=== PATIENT | male | born 1990 | race American Indian/Alaskan Native ===

== ENCOUNTER 2016-12-07 09:15 | Emergency (ER) | payer MEDICAID ==
[2016-12-07] MEDS ORDERED: TORADOL IM ONE (10:34)
--- NOTE | 2016-12-07 10:40 | Emergency Department Report ---
HPI - General Chief Complaint: Extremity Injury, Lower Time Seen by Provider: 12/07/16 10:23 - HPI HPI: Room 24 The patient is a 26-year-old male presenting with a chief complaint right lower extremity pain. The patient states last night at approximately 20:00 while at work he developed pain and numbness in his right lower extremity. The patient states the pain increases with movement or weightbearing. The patient has a history of herniated disc at L4/L5 in addition to sciatica. Patient denies testicular pain, dysuria, hematuria, fever, nausea or vomiting. Patient denies bowel or bladder incontinence. Patient denies any preceding trauma. The patient gives his pain a score of 9/10. The patient states he has pain from his sciatica nearly every day Location: Right lower extremity Duration: Constant since 20:00 Quality: Pain Severity: 9/10 Modifying factors: Movement and weightbearing increases pain Context: [see above] Mode of transportation: The patient drove himself to the emergency department and there are currently no visitors present. Patient states he will attempt to contact his ED Past Medical Hx - Past Medical History Additional medical history: Hx Aplastic anemia/ sciatica. L4/5 - Surgical History Additional Surgical History: Port-a-cath placed to left chest-1996 - Family History Family history: no significant - Social History Smoking Status: Current Every Day Smoker (1/2 pack per day) Substance Use Type: None (denies illicit drug use), Alcohol (occasional) - Medications Home Medications: Home Medications Medication Instructions Recorded Confirmed Last Taken Type Albuterol Sulfate [Ventolin HFA] 2 puff IH Q4H PRN #1 hfa.aer.ad 05/01/13 Unknown Rx HYDROcodone/APAP 5-325 [[place] 1 - 2 each PO Q4-6H PRN #30 tablet 12/07/16 Unknown Rx 5/325] Ibuprofen [Motrin 800 MG tab] 800 mg PO Q8HR PRN #20 tablet 12/07/16 Unknown Rx ED Review of Systems ROS: Stated complaint: RT LEG PAIN Other details as noted in HPI Comment: All other systems reviewed and negative Constitutional: denies: chills, fever Eyes: denies: eye pain, eye discharge, vision change ENT: denies: ear pain, throat pain Respiratory: denies: cough, shortness of breath, wheezing Cardiovascular: denies: chest pain, palpitations Endocrine: no symptoms reported Gastrointestinal: denies: abdominal pain, nausea, diarrhea Genitourinary: denies: urgency, dysuria, testicular pain Musculoskeletal: arthralgia, myalgia Skin: denies: rash, lesions Neurological: paresthesias. denies: headache, weakness Psychiatric: denies: anxiety, depression Hematological/Lymphatic: denies: easy bleeding, easy bruising Physical Exam - Physical Exam Vital Signs: Vital Signs 12/07/16 09:21 Temperature 98.6 F Pulse Rate 94 H Respiratory 16 Rate Blood Pressure 155/83 O2 Sat by Pulse 98 Oximetry Physical Exam: GENERAL: The patient is well-developed well-nourished male sitting on stretcher appearing to be in moderate discomfort. [] HEENT: Normocephalic. Atraumatic. Extraocular motions are intact. Patient has moist mucous membranes. NECK: Supple. Trachea midline CHEST/LUNGS: Clear to auscultation. There is no respiratory distress noted. HEART/CARDIOVASCULAR: Regular. There is no tachycardia. There is no gallop rub or murmur. 2+ DP right foot ABDOMEN: Abdomen is soft, nontender. Patient has normal bowel sounds. There is no abdominal distention. SKIN: There is no rash. There is no edema. There is no diaphoresis. NEURO: The patient is awake, alert, and oriented. The patient is cooperative. The patient has no focal neurologic deficits. The patient has normal speech. Normal sensation bilateral lower extremity MUSCULOSKELETAL: There is pain in the right groin with axial loading of the right lower extremity. There is no evidence of acute injury. ED Course Vital Signs 12/07/16 09:21 Temperature 98.6 F Pulse Rate 94 H Respiratory 16 Rate Blood Pressure 155/83 O2 Sat by Pulse 98 Oximetry ED Medical Decision Making - Lab Data Result diagrams: 12/07/16 10:55 12/07/16 11:57 Laboratory Tests 12/07/16 12/07/16 12/07/16 10:55 10:55 10:55 WBC 8.6 RBC 4.75 Hgb 15.8 H Hct 46.8 H MCV 99 H MCH 33 H MCHC 34 RDW 14.0 Plt Count 234 Lymph % (Auto) 24.0 [place] % (Auto) 8.8 H Eos % (Auto) 1.7 Baso % (Auto) 0.4 Lymph # 2.1 [place] # 0.8 Eos # 0.1 Baso # 0.0 Seg Neutrophils % 65.1 Seg Neutrophils # 5.6 Sodium 141 Potassium 5.6 H Chloride 99.4 Carbon Dioxide 28 Anion Gap 19 BUN 18 Creatinine 1.0 Estimated GFR > 60 BUN/Creatinine Ratio 18.00 Glucose 89 Calcium 9.6 Total Creatine Kinase 195 H 12/07/16 11:57 WBC RBC Hgb Hct MCV MCH MCHC RDW Plt Count Lymph % (Auto) [place] % (Auto) Eos % (Auto) Baso % (Auto) Lymph # [place] # Eos # Baso # Seg Neutrophils % Seg Neutrophils # Sodium Potassium 4.6 Chloride Carbon Dioxide Anion Gap BUN Creatinine Estimated GFR BUN/Creatinine Ratio Glucose Calcium Total Creatine Kinase - Radiology Data Radiology results: report reviewed (right lower extremity Doppler), image reviewed (right lower extremity Doppler, right hip x-ray) interpreted by me: Right hip x-ray-no acute fractures. Dense/abnormal appearing femoral heads bilaterally Right lower extremity Doppler (read by technologists)-no evidence of acute SVT/ DVT Right hip x-ray (read by radiologist)- bilateral femoral head avascular necrosis. - Medical Decision Making Discussed with patient his x-ray findings and need for prompt orthopedic surgery referral. Patient verbalized understanding - Differential Diagnosis sciatica, lumbar radiculopathy, avascular necrosis of the hip Critical care attestation.: If time is entered above; I have spent that time in minutes in the direct care of this critically ill patient, excluding procedure time. ED Disposition Clinical Impression: Avascular necrosis of bones of both hips, Acute right hip pain Disposition: TO HOME OR SELFCARE Is pt being admited?: No Does the pt Need Aspirin: No Condition: Stable Instructions: Lumbar Radiculopathy (ED), Arthralgia (ED) Additional Instructions: Return to the emergency department immediately should you develop worsening symptoms, fever, inability to tolerate food or liquid or any other concerns. Prescriptions: HYDROcodone/APAP 5-325 [[place] 5/325] 1 - 2 each PO Q4-6H PRN #30 tablet PRN Reason: Pain Ibuprofen [Motrin 800 MG tab] 800 mg PO Q8HR PRN #20 tablet PRN Reason: Pain Referrals: ROXI VELOZ MD [Staff Physician] - MARILYNN (Dr. Veloz is an orthopedic surgeon. Please follow up with him for further management of your avascular necrosis of the hips) Time of Disposition: 13:03
--- NOTE | 2016-12-07 11:02 | XRay Report ---
RIGHT HIP RADIOGRAPHS INDICATION: Pain with movement and weight-bearing. COMPARISON: None similar. FINDINGS: An AP pelvic radiograph with frog-leg projection of the right hip demonstrate bilateral femoral head avascular necrosis involving almost entire articular surfaces. Slight articular surface flattening/irregularity, more so on the left. Femoral heads still located within the acetabula. Imaged bilateral SI and hip joints appear intact. Nonobstructive bowel gas pattern. CONCLUSION: Bilateral femoral head AVN, as described. Thank you for the opportunity to participate in this patient's care.
[2016-12-07 11:11] LABS: Basophils % (Auto) 0.4 % (0.0-1.8); Eosinophils % (Auto) 1.7 % (0.0-4.3); Hematocrit 46.8 % (35.5-45.6); Hemoglobin 15.8 gm/dl (11.8-15.2); Mean Corpuscular HGB Conc 34 % (32-34); Mean Corpuscular Hemoglobin 33 pg (28-32); Mean Corpuscular Volume 99 fl (84-94); Platelet Count 234 K/mm3 (140-440); Red Blood Count 4.75 M/mm3 (3.65-5.03); White Blood Count 8.6 K/mm3 (4.5-11.0)
[2016-12-07 11:36] LABS: Anion Gap 19 mmol/L; Blood Urea Nitrogen 18 mg/dL (9-20); Calcium 9.6 mg/dL (8.4-10.2); Carbon Dioxide 28 mmol/L (22-30); Chloride 99.4 mmol/L (98-107); Glucose 89 mg/dL (75-100); Potassium 5.6 mmol/L (3.6-5.0); Sodium 141 mmol/L (137-145)
[2016-12-07 12:34] VITALS: BP 125/79
--- NOTE | 2016-12-08 11:12 | Vascular Lab Report ---
Right Lower Extremity Venous Duplex Study: Reason for Exam: Pain of the right lower extremity. Comments on the Right: All veins visualized are freely compressible without evidence of internal echogenicity. Flow is spontaneous and phasic throughout. No evidence of acute or chronic thrombus is seen in any of the vessels visualized. Comments on the Left: A limited duplex study was done of the proximal veins of the left lower extremity. All veins visualized are freely compressible without evidence of internal echogenicity. Flow is spontaneous and phasic throughout. No evidence of acute or chronic thrombus is seen in any of the vessels visualized. Impression: No evidence of acute or chronic deep venous thrombosis in the right lower extremity.
== END 2016-12-07 13:44 | disposition home or self-care (01) ==
LOC: ED 09:15
DX: M87.9 Osteonecrosis, unspecified (principal); F17.200 Nicotine dependence, unspecified, uncomplicated
CPT/HCPCS: 36415; 73502; 80048; 82550; 84132; 85025; 93971; 96372; 99284; J1885

== ENCOUNTER 2017-06-17 00:06 | Emergency (ER) | payer MEDICAID ==
[2017-06-17 02:59] LABS: Basophils # (Auto) 0.1 K/mm3 (0.0-0.1); Basophils % (Auto) 0.9 % (0.0-1.8); Eosinophils # (Auto) 0.1 K/mm3 (0.0-0.4); Eosinophils % (Auto) 0.7 % (0.0-4.3); Hematocrit 46.4 % (35.5-45.6); Hemoglobin 15.8 gm/dl (11.8-15.2); Lymphocytes # (Auto) 1.7 K/mm3 (1.2-5.4); Mean Corpuscular HGB Conc 34 % (32-34); Mean Corpuscular Hemoglobin 34 pg (28-32); Mean Corpuscular Volume 100 fl (84-94); Monocytes # (Auto) 0.6 K/mm3 (0.0-0.8); Monocytes % (Auto) 5.8 % (0.0-7.3); Platelet Count 228 K/mm3 (140-440); Red Blood Count 4.63 M/mm3 (3.65-5.03); Red Cell Distribution Width 13.9 % (13.2-15.2)
[2017-06-17 03:10] LABS: BUN/Creatinine Ratio 12; Blood Urea Nitrogen 12 mg/dL (9-20); Calcium 9.2 mg/dL (8.4-10.2); Hemolysis Index 10
--- NOTE | 2017-06-17 03:16 | XRay Report ---
FINAL REPORT EXAM: XR HIPS BILAT 2V W/PELVIS HISTORY: bilateral hip pain COMPARISON: None available. FINDINGS: AP view of the pelvis and frogleg views of each hip obtained. Bilateral hip joint space is preserved. There is abnormal sclerosis of the femoral heads bilaterally. The curvilinear lucencies extending along the undersurfaces of the femoral heads also. Findings are compatible with AVN. No demetrius collapse or depression of the articular surface of the femoral heads at this time. Pelvic ring is otherwise intact. IMPRESSION: Findings compatible with bilateral AVN involving the femoral heads. No collapse of the femoral heads at this time.
--- NOTE | 2017-06-17 03:38 | Cat Scan Report ---
FINAL REPORT EXAM: CT HEAD/BRAIN WO CON HISTORY: headache COMPARISON: None available. TECHNIQUE: Axial images obtained skull base through vertex. FINDINGS: No acute intracranial hemorrhage, midline shift or pathologic extra axial fluid collection. Ventricles and cisterns are normal in size and configuration for the patient's age. Saxena-white differentiation preserved. Calvarium grossly intact. Ocular globes are grossly unremarkable. Visualized para-nasal sinuses and mastoid air cells are clear. IMPRESSION: No grossly acute intracranial abnormality.
[2017-06-17] MEDS ORDERED: NACL 0.9% 1000 ML 1,000 ML IV ONE (09:51)
[2017-06-17] MEDS ORDERED: MORPHINE IV ONE (09:51)
--- NOTE | 2017-06-17 09:54 | Emergency Department Report ---
HPI - General Chief Complaint: Pain General Time Seen by Provider: 06/17/17 09:31 - HPI HPI: This is a 26 year-old male presents to the emergency department with a 3 to four-day history of bilateral hip pain. He has a history of avascular necrosis and follows with Dr. Veloz for orthopedics. He says that the plan is for him to get hip replacement surgery at some point. He' s been trying some ibuprofen and tramadol for his pain without much relief. He says that because the pain has been uncontrollably also has developed a 1-2 day history of a generalized headache. He has one episode of nausea and vomiting. He also has a past history of aplastic anemia, sciatica. No recent travel or sick contacts at home. He denies any fever, chest pain, shortness of breath, rash or any edema. ED Past Medical Hx - Past Medical History Additional medical history: Hx Aplastic anemia/ sciatica/ CHRONIC HIP PAIN/ AVASCULAR NECROSIS. L4/5 - Surgical History Additional Surgical History: Port-a-cath placed to left chest-1996 - Social History Smoking Status: Current Every Day Smoker Substance Use Type: None - Medications Home Medications: Home Medications Medication Instructions Recorded Confirmed Last Taken Type Albuterol Sulfate [Ventolin HFA] 2 puff IH Q4H PRN #1 hfa.aer.ad 05/01/13 Unknown Rx HYDROcodone/APAP 5-325 [[place] 1 - 2 each PO Q4-6H PRN #30 tablet 12/07/16 Unknown Rx 5/325] Ibuprofen [Motrin 800 MG tab] 800 mg PO Q8HR PRN #20 tablet 12/07/16 Unknown Rx HYDROcodone/ACETAMINOPHEN [[place] 1 each PO Q6H PRN #10 tablet 06/17/17 Unknown Rx 5-325 Tablet] ED Review of Systems ROS: Stated complaint: HIP,LEG PAIN Other details as noted in HPI Comment: All other systems reviewed and negative Constitutional: denies: chills, fever Eyes: denies: eye pain, eye discharge, vision change ENT: denies: ear pain, throat pain Respiratory: denies: cough, shortness of breath, wheezing Cardiovascular: denies: chest pain, palpitations Gastrointestinal: nausea, vomiting. denies: abdominal pain, diarrhea Genitourinary: denies: urgency, dysuria Musculoskeletal: arthralgia. denies: joint swelling Skin: denies: rash, lesions Neurological: headache. denies: numbness Physical Exam - Physical Exam Vital Signs: Vital Signs 06/17/17 06/17/17 06/17/17 01:39 02:15 08:23 Temperature 98.6 F 98.6 F 98.7 F Pulse Rate 81 79 73 Respiratory 18 18 16 Rate Blood Pressure 126/81 126/81 Blood Pressure 110/69 [Left] O2 Sat by Pulse 98 100 96 Oximetry 06/17/17 06/17/17 09:30 09:45 Temperature Pulse Rate Respiratory Rate Blood Pressure 109/77 Blood Pressure [Left] O2 Sat by Pulse 97 97 Oximetry Physical Exam: GENERAL: The patient is well-developed well-nourished. HENT: Normocephalic. Atraumatic. Patient has moist mucous membranes. EYES: Extraocular motions are intact. Pupils equal reactive to light bilaterally. NECK: Supple. Trachea is midline. CHEST/LUNGS: Clear to auscultation. There is no respiratory distress noted. HEART/CARDIOVASCULAR: Regular. There is no tachycardia. There is no murmur. ABDOMEN: Abdomen is soft, nontender. Patient has normal bowel sounds. There is no abdominal distention. SKIN: Skin is warm and dry. NEURO: The patient is awake, alert, and oriented. The patient is cooperative. The patient has no focal neurologic deficits. The patient has normal speech. MUSCULOSKELETAL: There is some tenderness palpation to the bilateral hips but no obvious deformity. There is no limitation range of motion but he has some pain with motion. There is no evidence of acute injury. ED Course Vital Signs 06/17/17 06/17/17 06/17/17 01:39 02:15 08:23 Temperature 98.6 F 98.6 F 98.7 F Pulse Rate 81 79 73 Respiratory 18 18 16 Rate Blood Pressure 126/81 126/81 Blood Pressure 110/69 [Left] O2 Sat by Pulse 98 100 96 Oximetry 06/17/17 06/17/17 09:30 09:45 Temperature Pulse Rate Respiratory Rate Blood Pressure 109/77 Blood Pressure [Left] O2 Sat by Pulse 97 97 Oximetry ED Medical Decision Making - Lab Data Result diagrams: 06/17/17 02:31 06/17/17 02:31 - Radiology Data Radiology results: report reviewed EXAM: CT HEAD/BRAIN WO CON HISTORY: headache COMPARISON: None available. TECHNIQUE: Axial images obtained skull base through vertex. FINDINGS: No acute intracranial hemorrhage, midline shift or pathologic extra axial fluid collection. Ventricles and cisterns are normal in size and configuration for the patient's age. Saxena-white differentiation preserved. Calvarium grossly intact. Ocular globes are grossly unremarkable. Visualized para-nasal sinuses and mastoid air cells are clear. IMPRESSION: No grossly acute intracranial abnormality. Transcribed By: LMA Dictated By: BERNABE YCR MD Electronically Authenticated By: BERNABE CYR MD Signed Date/Time: 06/16/17 6688 EXAM: XR HIPS BILAT 2V W/PELVIS HISTORY: bilateral hip pain COMPARISON: None available. FINDINGS: AP view of the pelvis and frogleg views of each hip obtained. Bilateral hip joint space is preserved. There is abnormal sclerosis of the femoral heads bilaterally. The curvilinear lucencies extending along the undersurfaces of the femoral heads also. Findings are compatible with AVN. No demetrius collapse or depression of the articular surface of the femoral heads at this time. Pelvic ring is otherwise intact. IMPRESSION: Findings compatible with bilateral AVN involving the femoral heads. No collapse of the femoral heads at this time. Transcribed By: LMA Dictated By: BERNABE CYR MD Electronically Authenticated By: BERNABE CYR MD Signed Date/Time: 06/16/17 6793 - Medical Decision Making Patient with a history of bilateral avascular necrosis of the hips presents with bilateral hip pain. X-ray show the AVM but no collapse of the femoral heads. The patient already has a appointment with the orthopedist tomorrow at 9 :15 AM. He was given a dose of pain medication and some IV fluid and upon reevaluation he says he is feeling improved. He'll be given some crutches to try and limit the amount of weight to his hips when he ambulates. Prior to my arrival, the patient had a CT of the head secondary to a recent headache. Every time the patient was reexamined he was resting comfortably if not sleeping on the gurney. No focal, motor or sensory deficits and his cranial nerves are intact. He will return to the emergency Department with any worsening symptoms or any acute distress. - Differential Diagnosis AVN hips, osteoarthritis, fracture, sprain Critical Care Time: No Critical care attestation.: If time is entered above; I have spent that time in minutes in the direct care of this critically ill patient, excluding procedure time. ED Disposition Clinical Impression: Bilateral hip pain, Avascular necrosis of bones of both hips Disposition: TO HOME OR SELFCARE Is pt being admited?: No Condition: Stable Instructions: Arthralgia (ED) Additional Instructions: Please follow up with Dr. Veloz tomorrow morning as previously scheduled. Return to the emergency Department with any worsening of your symptoms or any acute distress. You have been prescribed a medication that is sedating and therefore should not be taken prior to driving, working, and responsible for children and in no way should be mixed with alcohol of any quantity. Prescriptions: HYDROcodone/ACETAMINOPHEN [[place] 5-325 Tablet] 1 each PO Q6H PRN #10 tablet PRN Reason: Pain Referrals: ROXI VELOZ MD [Staff Physician] - 06/18/17 Time of Disposition: 12:45
[2017-06-17 14:19] VITALS: BP 117/75
== END 2017-06-17 13:30 | disposition home or self-care (01) ==
LOC: ED 00:06
DX: M87.9 Osteonecrosis, unspecified (principal); M25.551 Pain in right hip; M25.552 Pain in left hip; F17.200 Nicotine dependence, unspecified, uncomplicated
CPT/HCPCS: 36415; 70450; 73521; 80048; 85025; 96361; 96374; 99285; J2270; J7030

== ENCOUNTER 2019-03-01 12:56 | Emergency (ER) | payer MEDICAID ==
--- NOTE | 2019-03-01 13:18 | Emergency Department Report ---
Chief Complaint: Medical Clearance Stated Complaint: HBP Time Seen by Provider: 03/01/19 13:04 - HPI History of Present Illness: This is a 28 y.o. M. that presents to the ER worried about blood pressure remaining elevated for 1-2 weeks. Patient reports highest reading was 157/96. He denies headache, chest pain, SOB, visual changes, or weakness. - Exam Vital Signs: Vital Signs 03/01/19 12:57 Temperature 98.2 F Pulse Rate 90 Respiratory 18 Rate Blood Pressure 147/99 [Right] O2 Sat by Pulse 99 Oximetry MSE screening note: Focused history and physical exam performed. Due to findings the following was ordered: ED Medical Decision Making - Medical Decision Making This is a 28-year-old male that presents with concerns for elevated blood pressure for 1 week. Patient is stable was examined by me. Blood pressure stable. I reviewed his blood pressure log with only 1 reading 157/96. He is asymptomatic and denies chest pain, headache, visual changes, and palpitations. Given DASH diet and instructed to change diet. Start HCTZ. Patient was referred to Follow-up with a primary care doctor in 3-5 days or if symptoms worsen and continue return to emergency room as soon as possible. At time of discharge, the patient does not seem toxic or ill in appearance. No acute signs of distress noted. Patient agrees to discharge treatment plan of care. No further questions noted by the patient. ED Disposition for MSE Clinical Impression: Feared complaint without diagnosis Disposition: DC-01 TO HOME OR SELFCARE Is pt being admited?: No Does the pt Need Aspirin: No Condition: Stable Instructions: DASH Eating Plan (ED), Hypertension (ED) Additional Instructions: Follow-up with a primary care doctor in 3-5 days or if symptoms worsen and continue return to the emergency department as soon as possible. Prescriptions: hydroCHLOROthiazide [Hctz] 12.5 mg PO QDAY #14 capsule Referrals: [facility] [Provider Group] - 3-5 Days [facility] [Provider Group] - 3-5 Days [facility] [Provider Group] - 3-5 Days [facility] [Provider Group] - 3-5 Days Time of Disposition: 13:25
[2019-03-01 13:57] VITALS: BP 169/97
== END 2019-03-01 13:57 | disposition home or self-care (01) ==
LOC: ED 12:56
DX: Z71.1 Person with feared health complaint in whom no diagnosis is made (principal); Z88.2 Allergy status to sulfonamides
CPT/HCPCS: 99281